=== PATIENT | male | born 1975 | race Caucasian/White ===

== ENCOUNTER 2016-09-30 13:37 | Emergency (ER) | payer MEDICAID ==
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
[2016-09-30 14:44] VITALS: BP 141/95
== END 2016-09-30 14:45 | disposition home or self-care (01) ==
LOC: FB.ED 13:37
DX: M54.5 Low back pain (principal)
CPT/HCPCS: 99283